=== PATIENT | female | born 1970 | race Hispanic/Latino ===

== ENCOUNTER 2016-07-05 11:32 | Emergency (ER) | payer MEDICAID, OTHER ==
[~2016-07-05] VITALS: Ht 165.1 cm; Wt 85.9 kg
[2016-07-05 11:34] VITALS: BP 138/81; PULSE 71; RESP 16; O2SAT 98
--- NOTE | 2016-07-05 12:09 | ED.REPORT ---
HPI-Extremity Problem Lower Date of Service Jul 05, 2016 ED Provider: Balwinder Smith PA-C Kyleigh is a 46-year-old female who presents with chief complaint of bilateral foot pain. Patient states that she had hammertoe surgery approximately one month ago, and the pain at the site is not resolving. She reports that is causing her alter her gait, which is making her left foot hurt. She has describes the pain in her right foot as a stabbing pain on the outside of the fifth MTP joint and metatarsal. She describes the pain in her left foot as an achy midfoot pain. Both are aggravated by walking. Patient states that she is moved away from where surgery was performed and has not followed up with her surgeon. She has not established herself with a primary care provider. Patient reports remote history of fractures in her left foot that she cannot provide specifics. She has been treating the pain intermittently with Vicodin. Nursing Notes Stated Complaint: FEET PAIN Chief Complaint: Extremity Trauma Nursing Notes Reviewed: Yes Allergies: Coded Allergies: No Known Allergies (Unverified , 07/05/16) General Time Seen by MD: 11:44 Chief Complaint Foot injury right, Foot injury left Past Medical History Past Medical History Retinoblastoma. Denies: Diabetes mellitus, Hypertension Review of Systems Negative unless otherwise stated in history of present illness Physical Exam General: Well developed, well nourished, no acute distress. Right ankle: Nontender, full range of motion Right foot: 4 cm scar dorsal aspect of the fifth digit MTP and fifth meta- tarsal. Tenderness over fourth and fifth MTP joints, dorsal and plantar. No redness, swelling, heat. No tenderness over the posterior aspects of malleoli, medial midfoot or base of fifth metatarsal. Brisk capillary refill and sensation in all 5 digits Left ankle: Nontender full range of motion Left foot: No deformity, redness, swelling, heat, tenderness. Brisk capillary refill and sensation in all 5 digits Head: Atraumatic, normocephalic. Eyes: Left eye surgically absent. Right eye no scleral icterus or injection. No discharge. Vision grossly intact. ENT: Voice clear, hearing grossly intact. Skin: Warm and dry. Neurological: Grossly nonfocal. Psychological: alert and oriented. Speech appropriate, linear and logical. Behavior appropriate. Initial Vital Signs Vital Signs (First) Date Time Temp Pulse Resp B/P Pulse Ox O2 Delivery O2 Flow Rate FiO2 1/6/17 11:34 36.6 71 16 138/81 98 Room Air Initial VS: Reviewed Re-Eval/Medical Decision Med Decision/Clinical Course Otherwise healthy 46-year-old female presents with bilateral foot pain. She is able to walk and reports no acute injury. She does report history of hammertoe surgery on her right fifth toe approximately one months ago with for which he has not sought follow-up. History and physical refill no indication of infection. Her pain appears to be chronic in nature, with no indication to perform imaging in the ED. Provide her with a referral to sock ironer or primary care provider and a plan for [id number] pain control. Patient was amenable to this plan and agreed to discharge. Discharge & Departure Impression: Primary Impression: Foot pain, bilateral Disposition: Home Discharge Condition All VS Reviewed: Yes Condition: Stable Additional Instructions: Evaluation for foot pain in the ED. Based on history and physical appears that this is a chronic foot pain, without any acute injury or infection. The pain in your right foot appears to be related to your hammertoe surgery 1 month ago, and you report that it is gradually improving since that time. I will provide you with a referral to sock ironer, Dr. Renny Merida. Please call this afternoon to arrange follow-up. In the meantime, wear the most supportive shoes that you have. Rest and elevate your feet as much as possible. The pain is best treated with 400 mg of ibuprofen (Advil, Motrin) every 6 hours, or 1000 mg of acetaminophen (Tylenol) every 6 hours. These drugs can be taken at the same time for more severe pain. I have also provided a referral for a primary care physician. Please contact them soon to get established as a patient. Referrals: Renny Merida DPM, Zemfira L MD EDSupervising Provider for APC: Ayah Baca MD, Seth PA-C Jul 05, 2016 12:09
== END 2016-07-05 13:09 | disposition home or self-care (01) ==
LOC: SED 11:32
DX: M79.671 Pain in right foot (principal); M79.672 Pain in left foot; Z98.890 Other specified postprocedural states

== ENCOUNTER 2016-08-09 13:32 | Emergency (ER) | payer OTHER ==
[~2016-08-09] VITALS: Ht 152.4 cm; Wt 85.0 kg
[2016-08-09 13:35] VITALS: BP 135/79; PULSE 81; RESP 16; O2SAT 98
--- NOTE | 2016-08-09 15:19 | ED.REPORT ---
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 The patient states that she recently moved from [facility] where she was previously seen by a neurologist Antelmo Alexis MD in [place], [place]. 6 months ago the patient began to have breakthrough seizures and she was started on Lamotrigine 200mg TID in addition to her Levetriacitam 500mg BID. The patient has continued to have breakthrough seizures but was maintained on her medications at her follow up appointment 3 months ago. The patient does not have a neurologist in [place], [place]. She is scheduled to see a PCP in October 2016 where she will ask for a referral to a local Neurologist. Nursing Notes Stated Complaint: EPILEPSY Chief Complaint: Seizure Nursing Notes Reviewed: Yes Allergies: Coded Allergies: No Known Allergies (Unverified , 07/05/16) General Time Seen by Provider: 14:10 Chief Complaint Chief Complaint: Seizure, focal, Seizure, generalized Seizure Anatomic Location: Face, Generalized Hx Obtained From: Patient, Other family... (sister) Onset Occurred: More than a week ago... (>6 months) Symptom Duration: Intermittent Progression Since Onset: Gradually worsening Immunizations: Unknown Recent Healthcare: No recent doctor visit, No recent hospitalization Similar Sx Previous: Yes Risk-Seizure IC Bleed Risk Stratification RF Statements: No risk factors SAH Risk Stratification RF Statements: No risk factors Past Medical History Past Medical History Retinoblastoma treated with radiation at 3yo Seizures GERD Eczema Past Surgical History eye enucleation numerous skin grafts for her face since her eye enucleation Smoking History Never Smoker Social History lives in [place] with her sister and son until she moves into her own private residence Alcohol Use: Denies alcohol use Drug Use: Denies drug use Occupation unemployed Ambulatory Status Independent Review of Systems Complete sys rev & neg: except as marked. Physical Exam Initial Vital Signs Vital Signs (First) Date Time Temp Pulse Resp B/P Pulse Ox O2 Delivery O2 Flow Rate FiO2 08/09/16 13:35 36.4 81 16 135/79 98 Initial VS: Reviewed General/Constitutional: Alert, Well developed, Well hydrated, Well nourished, Cooperative, Not toxic appearing Distress / Hydration: Positive: Distress mild Appearance / Presentation: Positive: Obese Neck: Supple, No meningismus, Full range of motion, No swelling, Non-tender Respiratory / Chest: Breath sounds NL, Breath sounds = bilat, No respiratory distress, No rales, No rhonchi, No wheezing Cardiovascular: Heart rate NL, Regular rhythm, Heart sounds NL, Peripheral circulation NL Neurologic: Oriented X3, Speech NL, No motor deficits, No sensory deficits, CN II - XII intact, Reflexes equal bilat, Cerebellar NL Head / Eyes: Atraumatic, Normocephalic, PERRL, EOMI, No nystagmus, Conjunctiva NL enucleated eye on right, exam only pertains to intact left eye photophobia noted ENT: Atraumatic, Airway patent, Mucous membranes moist, Pharynx NL phonophobia noted Abdomen: Soft, Non-tender, No guarding, No rebound Skin: Color NL, Warm, Dry, Intact, Turgor NL Psychiatric: Affect NL, Mood NL, Cognitive function NL, Thought content NL Additional Physical Exam: no disdiadokokinesia strength intact bilaterally in upper and lower extremities no pronator drift Re-Eval/Medical Decision Med Decision/Clinical Course Patient has had chronic seizures since childhood, her seizures are reportedly becoming more frequently however not more severe in symptomatology or duration. I have asked the patient to contact her neurologist in [place] and see if he can transfer her care to a local neurologist. I will refer her to the [facility] residency clinic for evaluation and neurology referral as she could not be seen by her new PCP until October. Counseled Regarding: Need for follow-up, When/why to return to ED Discharge & Departure Impression: Primary Impression: Seizure Disposition: Home Discharge Condition All VS Reviewed: Yes Condition: Stable Patient Instructions: Epilepsy (ED) Additional Instructions: During you visit to [facility] Emergency Department we obtained your medical history and given your symptoms, the chronic nature of your seizures, and your stable vital signs you were stable and safe for discharge. Due to the lack of on-call Neurologist available the best course is to refer you to [facility] to establish care and be referred to a neurologist as soon as possible. Please call the clinic upon discharge from the ED and ask for the first available [facility] ED Follow up appointment. The number is [phone] We encourage you to call your neurologist and ask for recommendations as well as ask if he may be able to transition your care to a local neurologist. Do not hesitate to call emergency services if you experience any of the following. - High unrelenting fevers. - Uncontrolled vomiting. - Severe hypertension. - Syncope or loss of consciousness. - Chest pain or severe shortness of breath. - Severe seizures Follow up with [facility] as soon as possible following your emergency department visit for medication checks, labs, neurology referrals , and general well-being. Referrals: Laura Burt MD (PCP) [facility] Attending Statement I saw and evaluated the patient with the resident as above. I independently evaluated the patient and agree with plan as above. In brief, 46-year-old female long history of seizure disorder presenting complaining of recurrent seizures last 6 months. Her neurologist is in [place] and she needs a new neurologist. We do not have a neurologist interventionist. She is not having any active seizures. Recommend she follow up with primary doctor which we have given her a number for and she may get referral to neurology. I also recommended she call her neurologist in [place]. Recommend she continue her current medications. Return precautions given. copies to: [facility] ADY CAMEJO DO Aug 09, 2016 15:03 Rad Trevino MD Aug 09, 2016 15:36
[2016-08-09 16:07] VITALS: BP 129/78; PULSE 87; RESP 18; O2SAT 96
== END 2016-08-09 16:14 | disposition home or self-care (01) ==
LOC: SED 13:32
DX: G40.909 Epilepsy, unspecified, not intractable, without status epilepticus (principal); K21.9 Gastro-esophageal reflux disease without esophagitis
CPT/HCPCS: 99284; G0463